=== PATIENT | female | born 1980 | race Two or more races ===

== ENCOUNTER 2019-05-28 10:51 | Emergency (ER) | payer SELFPAY ==
[~2019-05-28] VITALS: Ht 162.6 cm; Wt 79.4 kg
[2019-05-28] MEDS ORDERED: NKM (10:59)
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
[2019-05-28] MEDS ORDERED: IBUPROFEN600 MG ORAL (12:40)
[2019-05-28] MEDS ORDERED: ROBAXIN-500MG ORAL (12:40)
--- NOTE | 2019-05-28 12:56 | Diagnostic Imaging Report ---
Indication: Neck Pain Findings: 3 views of the cervical spine were obtained. There is no acute fracture identified. Bones are osteopenic. Alignment is normal. The open-mouth odontoid view shows an intact dens and good alignment of the lateral masses with respect to the body of C2. There is no soft tissue swelling. Impression: Negative for acute injury
[2019-05-28 13:10] VITALS: BP 125/79
== END 2019-05-28 13:10 | disposition home or self-care (01) ==
LOC: EMR 11:18
DX: S13.4XXA Sprain of ligaments of cervical spine, initial encounter (principal); V49.9XXA Car occupant (driver) (passenger) injured in unspecified traffic accident, initial encounter; Y93.89 Activity, other specified; Y92.411 Interstate highway as the place of occurrence of the external cause
CPT/HCPCS: 72040; 99283